=== PATIENT | male | born 1995 | race Caucasian/White ===

== ENCOUNTER 2020-07-04 02:22 | Emergency (ER) | payer SELFPAY ==
[2020-07-04 02:26] VITALS: BP 139/91; PULSE 89; RESP 20; TEMP 36.6; O2SAT 100
[2020-07-04 02:34] VITALS: BP 133/88; PULSE 101; RESP 22; O2SAT 100
--- NOTE | 2020-07-04 02:35 | ED.ANXIETY ---
HPI - Anxiety General Chief Complaint: Anxiety Stated Complaint: Anxiety Time Seen by Provider: 07/04/20 02:34 Source: patient Mode of arrival: ambulatory Limitations: no limitations History of Present Illness HPI narrative: Patient is a 24-year-old male complaining of anxiety attack that started tonight. Patient states that he has a history of anxiety and takes alprazolam for it. Patient states that prior to the anxiety attack he was getting a migraine headache which he states is what probably precipitated his attack. Patient states that he has a history of migraine, takes Excedrin Migraine for it, which he took prior to arrival, currently his headache is mild, and it is going away . Patient states that he has had similar episodes in the past, last time was in 2018, had an MRI of his head and was told that it was normal. Patient does not want anything for his migraine since it is almost resolved. Patient does want something for his anxiety, I still feel anxious . Related Data Allergies Allergy/AdvReac Type Severity Reaction Status Date / Time No Known Allergies Allergy Verified 07/04/20 02:39 Review of Systems Review of Systems: All systems reviewed & are unremarkable except as noted in HPI and below Constitutional: Constitutional: Denies body ache(s), Denies chills, Denies excessive sweating, Denies fatigue, Denies fever(s), Denies headache(s), Denies lethargy, Denies malaise, Denies weakness and Denies weight loss Eyes: Eyes: Denies blurry vision, Denies change in vision and Denies loss of vision ENT: Denies dizziness, Denies ear discharge, Denies headache(s), Denies lip swelling, Denies epistaxis, Denies nasal congestion, Denies neck pain, Denies throat swelling and Denies tongue swelling Cardiovascular: Cardiovascular: Denies chest pain, Denies chest pain at rest, Denies chest pain with activity, Denies diaphoresis, Denies rapid heart rate, Denies edema, Denies irregular heart rhythm, Denies lightheadedness, Denies palpitations, Denies dyspnea and Denies dyspnea on exertion Respiratory: Respiratory: Denies chest congestion, Denies cough, Denies hemoptysis, Denies dyspnea and Denies dyspnea on exertion Gastrointestinal: Gastrointestinal: Denies abdominal pain, Denies melena, Denies hematochezia, Denies diarrhea, Denies nausea, Denies vomiting and Denies hematemesis Musculoskeletal: Musculoskeletal: Denies abnormal gait, Denies deformity, Denies joint swelling, Denies limited range of motion, Denies neck pain and Denies numbness Neurologic: Denies Abnormal speech present, Denies abnormal gait, Denies confusion, Denies dizziness, Denies headache(s), Denies focal weakness, Denies loss of vision, Denies numbness, Denies Other visual disturbances, Denies Sensory deficit (Neuro) and Denies weakness Psychiatric: Psychiatric: Denies confusion, Denies depression, Denies auditory hallucinations, Denies homicidal ideation and Denies suicidal ideation Endocrine: Endocrine: Denies cold intolerance, Denies excessive sweating, Denies fatigue, Denies heat intolerance and Denies palpitations Hematologic/Lymphatic: Hematologic/Lymphatic: Denies easy bleeding and Denies easy bruising Allergic/Immunologic: Allergic/Immunologic: Denies lip swelling, Denies throat swelling and Denies tongue swelling PMFSH Comments Past medical history: Anxiety Social history: Non-smoker no EtOH or drug use Exam Const: General: cooperative, healthy appearing, comfortable, no acute distress, well developed, alert and awake; No confusion Orientation/consciousness: oriented to person, oriented to place, oriented to time, patient oriented x3 and No confusion Limitations: no limitations HENMT: Head: normal to inspection, normocephalic and atraumatic Ears: hearing grossly normal bilaterally, TM normal on the right and TM normal on the left General nose exam: Normal external nose present, Normal nares present and No nasal discharge present Face and sinus: no
[2020-07-04] MEDS: LORazepam (*CRX) 1 MG TABLET PO (03:10)
[2020-07-04] MEDS: diphenhydrAMINE HCl INJ 50 MG/ML VIAL 25 MG IV PUSH (03:28)
[2020-07-04] MEDS: METOCLOPRAMIDE HCL INJ 10 MG/2 ML VIAL IV PUSH (03:28)
[2020-07-04] MEDS: SODIUM CHLORIDE 0.9% IV 1,000 ML 999 ML IV CONT (03:32)
[2020-07-04 03:34] VITALS: BP 136/88; PULSE 101; RESP 20; O2SAT 99
[2020-07-04 04:14] VITALS: BP 139/90; PULSE 99; RESP 20; TEMP 36.6; O2SAT 100
== END 2020-07-04 04:16 | disposition home or self-care (01) ==
PROVIDERS: Emergency Provider Emergency Medicine
DX: F41.9 Anxiety disorder, unspecified (principal); G43.909 Migraine, unspecified, not intractable, without status migrainosus
CPT/HCPCS: 96361; 96374; 96375; 99284; A9270; J1200; J2765; J7030